=== PATIENT | male | born 1935 | race Two or more races ===

== ENCOUNTER 2018-06-03 20:10 | Inpatient (IN) | payer MEDICARE, MEDICAID ==
[~2018-06-03] VITALS: Ht 177.8 cm; Wt 59.9 kg
--- NOTE | 2018-06-03 20:24 | NUR ---
PT BIB RA. COMP OF HAVING "HYPOGLYCEMIC EPISODE X2, BS 3PM AT 30. FED AND GIVEN 10% DEXTROSE SOLUTION. 7PM BS CHECK AT 40. GIVEN 10% DEXTROSE ON ROUTE". NO SOB NOTED. PT IN NO ACUTE DISTRESS. AO. FRENCH SPEAKING. AWAITING MD TORRES.
[2018-06-03 21:03] LABS: APPEARANCE,URINE Clear (CLEAR); BILIRUBIN,URINE Negative (NEGATIVE); BLOOD, URINE Negative Ery/uL (NEGATIVE); COLOR,URINE Yellow (YELLOW); KETONES,URINE Negative (NEGATIVE); LEUKOCYTE ESTERASE ,URINE Negative (NEGATIVE); NITRITE, URINE Negative (NEGATIVE); PH,URINE 6.5 (5.0-8.0); PROTEIN,URINE >=300 mg/dl (NEGATIVE); UGLUCOSE Negative (NEGATIVE); UROBILINOGEN,URINE 0.2 EU/dL (0.2)
--- NOTE | 2018-06-03 21:10 | NUR ---
LABS DRAWN AND SENT FOR ANALYSIS
[2018-06-03 21:15] LABS: BASOPHILS % (AUTO) 0.4 % (0.0-2.0); EOSINOPHILS % (AUTO) 3.7 % (0.0-6.0); HEMATOCRIT 35 % (39-51); HEMOGLOBIN 11.9 g/dL (13.5-17.5); LYMPHOCYTES # (AUTO) 0.5 /CMM (0.8-4.8); LYMPHOCYTES % (AUTO) 5.7 % (20.0-44.0); MEAN CORPUSCULAR HGB CONC 34 g/dl (31.0-36.0); MEAN CORPUSCULAR VOLUME 96 fL (80-96); MONOCYTES # (AUTO) 0.4 /CMM (0.1-1.30); MONOCYTES % (AUTO) 4.9 % (2.0-12.0); NEUTROPHILS # (AUTO) 7.5 /CMM (1.8-8.9); NEUTROPHILS % (AUTO) 85.3 % (43.0-81.0); PLATELET COUNT (AUTO) 314 /CMM (150-450); RED BLOOD CELL COUNT(AUTO) 3.64 MIL/uL (4.5-6.0); WHITE BLOOD COUNT (AUTO) 8.8 K/uL (4.3-11.0)
[2018-06-03 21:31] LABS: ALANINE AMINOTRANSFERASE 23 U/L (12-78); ALBUMIN 2.7 g/dL (3.4-5.0); ALKALINE PHOSPHATASE 151 U/L (46-116); ASPARTATE AMINOTRANSFERASE 22 U/L (15-37); BILIRUBIN,DIRECT 0.1 mg/dL (0.0-0.2); BILIRUBIN,TOTAL 0.2 mg/dL (0.2-1.0); CALCIUM, SERUM 8.3 mg/dL (8.5-10.1); CARBON DIOXIDE 26 mmol/L (21-32); CHLORIDE 98 mmol/L (98-107); CREATININE 1.4 mg/dL (0.6-1.3); LIPASE 488 U/L (73-393); POTASSIUM 4.8 mmol/L (3.5-5.1); SODIUM SERUM 128 mmol/L (136-145); TOTAL PROTEIN, SERUM 6.4 g/dL (6.4-8.2)
[2018-06-03 21:33] LABS: GLUCOSE 36 mg/dL (74-106)
[2018-06-03 21:39] LABS: UREA NITROGEN, BLOOD 31 mg/dL (7-18)
[2018-06-03] MEDS ORDERED: DEXTROSE 50%-WATER 50 ML DISP.SYRIN ONE (21:43)
--- NOTE | 2018-06-03 21:47 | NUR ---
Paged Dr Walker and requested a tele bed from the nursing tellers supervisor
--- NOTE | 2018-06-03 21:55 | NUR ---
PT IS ASSIGNED TO TELE #: [id number], DX: HYPOGLYCEMIA, AND ACCEPTING MD: DR HERNDON
[2018-06-03] MEDS ORDERED: DEXTROSE 50%-WATER 50 ML DISP.SYRIN IVP ONE (22:00)
--- NOTE | 2018-06-03 22:17 | NUR ---
REPORT GIVEN TO ALE DUMONT.
--- NOTE | 2018-06-03 22:50 | NUR ---
CULINARY ARTIST ADMISSION NOTES RECEIVED PT FROM ER VIA [place], PT LAYING DOWN, AWAKE, ALERT ORIENTED X3, [place] SPEAKING, BREATHING EVEN AND UNLABORED ON ROOM AIR, NO SOB NOTED. IV ACCESS ON THE L AC #22 PATENT AND FLUSHING. NO COMPLAINT OF PAIN OR DISCOMFORT AT THIS TIME. BED IN LOWEST LOCKED POSITION, CALL LIGHT WITHIN REACH AT ALL TIMES, WILL CONTINUE TO MONITOR.
[2018-06-03] MEDS ORDERED: GABA-532 PO (23:39)
[2018-06-03] MEDS ORDERED: FERR325T28 PO (23:39)
[2018-06-03] MEDS ORDERED: SODI1TAB3 PO (23:39)
[2018-06-03] MEDS ORDERED: FAMO20TA80 PO (23:39)
[2018-06-03] MEDS ORDERED: TRAM50TA PO (23:39)
[2018-06-03] MEDS ORDERED: TIOT18CA3 INH (23:39)
[2018-06-03] MEDS ORDERED: OMEP40CA37 PO (23:39)
[2018-06-03] MEDS ORDERED: FLUT1DIS3 INH (23:39)
[2018-06-03] MEDS ORDERED: SERT50TA PO (23:39)
[2018-06-03] MEDS ORDERED: ONDA4TAB5 PO (23:39)
[2018-06-04] MEDS ORDERED: ONDANSETRON HCL/PF 4 MG/2 ML VIAL IVP PRN (01:00)
[2018-06-04] MEDS ORDERED: CLONIDINE HCL 0.1 MG TABLET PO PRN (01:00)
[2018-06-04 01:10] VITALS: BP 115/64
[2018-06-04 04:26] VITALS: BP 105/60
[2018-06-04] MEDS: TRAMADOL HCL 50 MG TABLET PO PRN ×2 (06:25→16:26)
--- NOTE | 2018-06-04 06:26 | NUR ---
TIRE BUILDER CLOSING NOTES PT REMAINS IN BED LAYING DOWN, AWAKE, ALERT ORIENTED X3, [place] SPEAKING, BREATHING EVEN AND UNLABORED ON ROOM AIR, NO SOB NOTED. IV ACCESS ON THE L AC #22 PATENT AND FLUSHING. MICROARRAY ANALYST IN PLACE, SR. NO COMPLAINT OF PAIN OR DISCOMFORT AT THIS TIME. BED IN LOWEST LOCKED POSITION, CALL LIGHT WITHIN REACH AT ALL TIMES, WILL ENDORSE TO DAY NURSE FOR DAIN
[2018-06-04 06:34] LABS: BASOPHILS % (AUTO) 0.4 % (0.0-2.0); EOSINOPHILS % (AUTO) 8.2 % (0.0-6.0); HEMATOCRIT 30 % (39-51); HEMOGLOBIN 10.1 g/dL (13.5-17.5); LYMPHOCYTES # (AUTO) 0.9 /CMM (0.8-4.8); LYMPHOCYTES % (AUTO) 14.2 % (20.0-44.0); MEAN CORPUSCULAR HGB CONC 34 g/dl (31.0-36.0); MEAN CORPUSCULAR VOLUME 95 fL (80-96); MONOCYTES # (AUTO) 0.5 /CMM (0.1-1.30); MONOCYTES % (AUTO) 7.6 % (2.0-12.0); NEUTROPHILS # (AUTO) 4.6 /CMM (1.8-8.9); NEUTROPHILS % (AUTO) 69.6 % (43.0-81.0); PLATELET COUNT (AUTO) 240 /CMM (150-450); RED BLOOD CELL COUNT(AUTO) 3.13 MIL/uL (4.5-6.0); WHITE BLOOD COUNT (AUTO) 6.6 K/uL (4.3-11.0)
[2018-06-04 07:30] LABS: ALANINE AMINOTRANSFERASE 21 U/L (12-78); ALBUMIN 2.4 g/dL (3.4-5.0); ALKALINE PHOSPHATASE 130 U/L (46-116); ASPARTATE AMINOTRANSFERASE 20 U/L (15-37); B-TYPE NATRIURETIC PEPTIDE 1605 PG/ML (0-125); BILIRUBIN,TOTAL 0.2 mg/dL (0.2-1.0); CARBON DIOXIDE 24 mmol/L (21-32); CHLORIDE 99 mmol/L (98-107); CREATININE 1.6 mg/dL (0.6-1.3); GLUCOSE 106 mg/dL (74-106); LIPASE 374 U/L (73-393); MAGNESIUM 2.2 mg/dL (1.8-2.4); PHOSPHORUS 2.6 mg/dL (2.5-4.9); POTASSIUM 4.8 mmol/L (3.5-5.1); SODIUM SERUM 129 mmol/L (136-145); TOTAL PROTEIN, SERUM 5.5 g/dL (6.4-8.2); UREA NITROGEN, BLOOD 32 mg/dL (7-18)
[2018-06-04 07:53] LABS: CHOLESTEROL 122 mg/dL (<200); HDL CHOLESTEROL 38 mg/dL (40-60); LDL 78 mg/dL (0-99); THYROID STIMULATING HORMONE 1.158 uIU/mL (0.358-3.74); TRIGLYCERIDES 63 mg/dL (30-150)
[2018-06-04 08:00] VITALS: BP 101/54
[2018-06-04 08:18] LABS: SERUM AMMONIA 40 umol/L (11-32)
[2018-06-04] MEDS ORDERED: FLUTICASONE/SALMETEROL DISKUS IH SCH (09:00)
[2018-06-04] MEDS: PANTOPRAZOLE 40 MG TABLET.DR PO SCH (09:09)
[2018-06-04] MEDS: GABAPENTIN 100 MG CAPSULE PO SCH ×3 (09:09→16:26)
[2018-06-04] MEDS: SODIUM CHLORIDE 1000 MG TABLET.SOL PO SCH ×2 (09:10→16:26)
[2018-06-04] MEDS: DOCUSATE SODIUM 100 MG CAPSULE PO SCH ×2 (09:10→16:27)
[2018-06-04] MEDS: FLUTICASONE/VILANTEROL 1 EACH BLST.W.DEV IH SCH (09:15)
--- NOTE | 2018-06-04 09:39 | NUR ---
RN OPENING NOTES RECEIVED PATIENT IN BED RESTING. A/OX2-3, SERBIAN SPEAKING, ABLE TO MAKE NEEDS KNOWN. NOT IN ANY FORM OF DISTRESS, NO SOB, DENIED PAIN OR DISCOMFORT AT THIS TIME. IV ACCESS INTACT AND PATENT. KEPT PATIENT SAFE AND COMFORTABLE. BED IN LOW/LOCKED POSITION, SEMIFOWLERS, SIDERAILS UPX2, CALL LIGHT IN REACH. WILL CONTINUE TO MONIOTR ACCORDINGLY.
--- NOTE | 2018-06-04 10:18 | NUR ---
CREATININE IS 1.6. RN WILL VERIFY WITH MD REGARDING CT ABDOMEN PELVIS WITH CONTRAST. CONSENT ALSO NEEDED PRIOR TO CT SCAN.
[2018-06-04] MEDS: ENSURE ENLIVE 237 ML LIQUID (VANILLA) PO SCH ×2 (15:28→16:24)
[2018-06-04 16:00] VITALS: BP 148/75
--- NOTE | 2018-06-04 19:05 | NUR ---
RN MS OPENING NOTES RECEIVED PATIENT IN BED AWAKE ALERT AND ORIENTED 3, ABLE TO MAKE NEEDS KNOWN,RESPIRATIONS EVEN AND UNLABORED WITH EQUAL RISE AND FALL OF CHEST,DENIES ANY PAIN AT THIS TIME, IV SITE TO LEFT AC #20 G SL INTACT AND PATENT, NO REDNESS, NO INFILTRATION PRESENT, SAFETY PRECAUTIONS IN PLACE, LOW BED AND LOCKED, BED ALARM IN PLACE, ORIENTED TO STAFF AND CALL LIGHT AND KEPT WITHIN REACH,FLUIDS AND URINAL OFFERED, MADE PATIENT AWARE NEED URINE SPECIMEN VERBALIZE HE UNDERSTANDS WILL CONTINUE TO FOLLOW UP ALL NEEDS ATTENDED REMAINS COMFORTABLE AT THIS TIME.
--- NOTE | 2018-06-04 19:20 | NUR ---
RN CLOSING NOTES PATIENT IN STABLE CONDITION. ALL NEEDS ATTENDED AND PROVIDED. ALL DUE MEDICATIONS GIVEN ORDERED. KEPT PATENT SAFE AND COMFORTABLE. BED IN LOW/LOCKED POSITION, SIDERAILS UPX2, CALL LIGHT IN REACH. WILL CONTINUE TO MONITOR ACCORDINGLY.
[2018-06-04 20:00] VITALS: BP 149/79
[2018-06-04] MEDS: ACETAMINOPHEN 325 MG TABLET PO PRN (20:52)
--- NOTE | 2018-06-04 20:52 | NUR ---
RN MS NOTES PATIENT COMPLAINT OF PAIN TO LOWER EXTREMITIES STATES "12/05 ITS ARTHRITIS PAIN" AND WANTS PAIN MEDICATION TYLENOL OFFERED AGREED TO TAKE PRN TYLENOL GIVEN ORDERED, WILL CONTINUE TO MONITOR FOR EFFECTIVENESS.
[2018-06-04] MEDS: SERTRALINE HCL 50 MG TABLET PO SCH (21:02)
[2018-06-04 23:03] LABS: URINE SODIUM, RANDOM 97 mmol/l (40-220)
[2018-06-04 23:18] LABS: OSMOLALITY,URINE 372 mOS/kg (340-1090)
--- NOTE | 2018-06-05 05:49 | NUR ---
RN MS NOTES NOTED PATIENT PICKING AT LEFT FA IV SITE NOTED PATIENT PEELED OFF TAPE AND NOTED SKIN TEAR, WOUND PICTURE TAKEN, WOUND CARE CONSULT PLACED,IV SITE INTACT AND PATENT, DRESSING PLACED REMAINS CLEAN AND DRY,WOUND CARE CONSULT ORDERED.
--- NOTE | 2018-06-05 06:37 | NUR ---
RN CLOSING NOTES PATIENT IN BED AWAKE ALERT AND ORIENTED X3, ABLE TO MAKE NEEDS KNOWN,RESPIRATIONS EVEN AND UNLABORED WITH EQUAL RISE AND FALL OF CHEST,DENIES ANY PAIN AT THIS TIME, IV SITE TO LEFT AC #20 G SL INTACT AND PATENT REINFORCED IV SITE DOES WORK, NO REDNESS, NO INFILTRATION PRESENT, PLACED DRESSING TO SELF INFLICTED SKIN TEAR, SAFETY PRECAUTIONS IN PLACE, LOW BED AND LOCKED, BED ALARM IN PLACE, CALL LIGHT AND KEPT WITHIN REACH,FLUIDS AND URINAL OFFERED, WILL CONTINUE TO FOLLOW UP ALL NEEDS ATTENDED REMAINS COMFORTABLE AT THIS TIME. WILL CONTINUE TO MONITOR AND ENDORSE TO NEXT SHIFT.
[2018-06-05 06:56] LABS: CALCIUM, SERUM 8.4 mg/dL (8.5-10.1); CARBON DIOXIDE 21 mmol/L (21-32); CHLORIDE 98 mmol/L (98-107); CREATININE 1.7 mg/dL (0.6-1.3); GLUCOSE 82 mg/dL (74-106); MAGNESIUM 2.2 mg/dL (1.8-2.4); PHOSPHORUS 3.5 mg/dL (2.5-4.9); POTASSIUM 4.8 mmol/L (3.5-5.1); SODIUM SERUM 128 mmol/L (136-145); UREA NITROGEN, BLOOD 34 mg/dL (7-18)
[2018-06-05 08:00] VITALS: BP 153/84
[2018-06-05 08:18] LABS: THYROID STIMULATING HORMONE 1.298 uIU/mL (0.358-3.74); URIC ACID 4.9 mg/dL (2.6-7.2)
[2018-06-05] MEDS: PANTOPRAZOLE 40 MG TABLET.DR PO SCH (09:06)
[2018-06-05] MEDS: SODIUM CHLORIDE 1000 MG TABLET.SOL PO SCH ×2 (09:07→17:23)
[2018-06-05] MEDS: DOCUSATE SODIUM 100 MG CAPSULE PO SCH ×2 (09:07→17:23)
[2018-06-05] MEDS: GABAPENTIN 100 MG CAPSULE PO SCH ×3 (09:07→17:23)
[2018-06-05] MEDS: TRAMADOL HCL 50 MG TABLET PO PRN ×2 (09:10→17:24)
[2018-06-05] MEDS: FLUTICASONE/VILANTEROL 1 EACH BLST.W.DEV IH SCH (09:11)
[2018-06-05] MEDS: ENSURE ENLIVE 237 ML LIQUID (VANILLA) PO SCH ×3 (09:11→17:00)
--- NOTE | 2018-06-05 10:22 | NUR ---
WOUND CARE CONSULT: PT PRESENTS WITH INCONTINENCE AND BLANCHABLE REDNESS TO BONY SACRAL AREA, PRESENT ON ADMISSION. PT NOTED TO HAVE SKIN TEAR TO LEFT ARM. RECOMMENDATIONS MADE FOR WOUND CARE AND SKIN PROTECTION. DISCUSSED WITH NURSING STAFF. CURRENT JUAN SCORE IS 13. WILL SEE PRN. HOYT IN AGREEMENT WITH PLAN OF CARE. Addendum: 06/05/18 at 1024 by SAMANTHA PARIS WNDNU Amended: Links added.
[2018-06-05] MEDS ORDERED: Z GUARD REMEDY 2 OZ OINT TP PRN (10:30)
[2018-06-05] MEDS: Z GUARD REMEDY 2 OZ OINT TP SCH (12:34)
[2018-06-05] MEDS ORDERED: ENSURE ENLIVE 237 ML LIQUID (VANILLA) PO SCH (14:00)
[2018-06-05 16:00] VITALS: BP 132/75
[2018-06-05] MEDS ORDERED: PEG 3350/NA SULF,BICARB,CL/KCL 4,000 ML BOTTLE PO ONE (16:30)
--- NOTE | 2018-06-05 18:00 | NUR ---
urine collected. called lab for package pick up
--- NOTE | 2018-06-05 19:05 | NUR ---
RN MS NOTES CONDOM CATHETER ASSESSED WITH ENDORSING RN NOTED INTACT WITH PROPER PLACEMENT , SKIN IS INTACT PINK IN COLOR CIRCULATION PRESENT AND CORRECT SIZE IN PLACE, NOT TIGHT FITTING.DRAINING WELL
--- NOTE | 2018-06-05 19:05 | NUR ---
JULIA MS OPENING NOTES RECEIVED PATIENT IN BED AWAKE ALERT AND ORIENTEDX3, ABLE TO MAKE NEEDS KNOWN,RESPIRATIONS EVEN AND UNLABORED WITH EQUAL RISE AND FALL OF CHEST,DENIES ANY PAIN AT THIS TIME, IV SITE TO LEFT AC #20 G SL INTACT AND PATENT, NO REDNESS, NO INFILTRATION PRESENT, SAFETY PRECAUTIONS IN PLACE, LOW BED AND LOCKED, BED ALARM IN PLACE, ORIENTED TO STAFF AND CALL LIGHT AND KEPT WITHIN REACH,FLUIDS AND URINAL OFFERED, GOLYTLEY DRINK AT BEDSIDE ORDERED VERBALIZE HE UNDERSTANDS WILL CONTINUE TO DRINK, WILL CONT TO F/UP FOLLOW UP, ALL NEEDS ATTENDED REMAINS COMFORTABLE AT THIS TIME.WILL CONTINUE TO MONITOR FOR BOWEL MOVEMENTS. Addendum: 06/05/18 at 2351 by CHET LARRY RN LEFT FA SKIN TEAR DRESSING IS C/D/I Addendum: 06/06/18 at 0537 by CHET LARRY RN CLARIFICATION PATIENT IS ON CONDOM CATHETER.
--- NOTE | 2018-06-05 19:29 | NUR ---
RN CLOSING NOTES PATIENT IN STABLE CONDITION. ALL NEEDS ATTENDED AND PROVIDED. ALL DUE MEDICATIONS ADMINISTERED ORDERED. KEPT PATIENT SAFE AND COMFORTABLE. BED IN LOW/LOCKED POSITION, SIDERAILS UPX2, CALL LIGHT IN REACH. ENDORSED TO NIGHT RN FOR DAIN.
[2018-06-05 20:00] VITALS: BP 147/78
[2018-06-05 20:20] LABS: APPEARANCE,URINE SL CLOUDY (CLEAR); BILIRUBIN,URINE NEGATIVE (NEGATIVE); BLOOD, URINE TRACE-INTA Ery/uL (NEGATIVE); COLOR,URINE YELLOW (YELLOW); KETONES,URINE NEGATIVE (NEGATIVE); LEUKOCYTE ESTERASE ,URINE 2+ (NEGATIVE); NITRITE, URINE NEGATIVE (NEGATIVE); PH,URINE 7.5 (5.0-8.0); PROTEIN,URINE 2+ mg/dl (NEGATIVE); UGLUCOSE NEGATIVE (NEGATIVE); UROBILINOGEN,URINE 0.2 EU/dL (0.2)
[2018-06-05 20:31] LABS: BACTERIA,URINE Few /HPF (None Seen); RBC,URINE 0-2 /HPF (0-2); SQUAMOUS EPITHELIAL CELL,UR Few /HPF (None Seen)
[2018-06-05 20:35] LABS: URINE TOTAL PROTEIN 158.4 mg/dL (0-11.9)
[2018-06-05 20:58] LABS: EOSINOPHIL,URINE None Seen
[2018-06-05] MEDS: SERTRALINE HCL 50 MG TABLET PO SCH (21:16)
[2018-06-05] MEDS: ACETAMINOPHEN 325 MG TABLET PO PRN (21:20)
--- NOTE | 2018-06-05 21:20 | NUR ---
RN MS NOTES MADE ARIC AWARE OF US GALLBLADDER RESULTS, PER CHEMICAL LABORATORY TECHNICIAN ARIC NO NEW ORDERS AT THIS TIME, RESUME DIET. PATIENT COMPLAINT OF PAIN TO LOWER EXTREMITY ARTHRITIC PAIN , TYLENOL OFFERED AGREED TO TAKE 650 MG GIVEN ORDERED, WILL CONTINUE TO MONITOR FOR EFFECTIVENESS, LIGHTS DIMMED, AND REPOSITIONED.
--- NOTE | 2018-06-06 05:20 | NUR ---
RN MS NOTES UPON REASSESSMENT NOTED PENILE TIP DEVELOPED FLUID BLISTER 0.5CMX0.5CM , REMOVED CONDOM CATHETER AT THIS TIME, WOUND CARE CONSULT PLACED PATIENT DENIES PAIN TO SITE, COLOR IS WNL. WILL CONTINUE TO MONITOR.
--- NOTE | 2018-06-06 06:25 | NUR ---
RN MS CLOSING NOTES PATIENT IN BED AWAKE ALERT AND ORIENTEDX3, ABLE TO MAKE NEEDS KNOWN,RESPIRATIONS EVEN AND UNLABORED WITH EQUAL RISE AND FALL OF CHEST,DENIES ANY PAIN AT THIS TIME, IV SITE TO LEFT AC #20 G SL INTACT AND PATENT, NO REDNESS, NO INFILTRATION PRESENT, SAFETY PRECAUTIONS IN PLACE, LOW BED AND LOCKED, BED ALARM IN PLACE, GOLYTELY WAS ENCOURAGED, HOWEVER PATIENT STATES "HE FELT FULL AND WILL TRY TO DRINK THROUGHOUT THE NIGHT. HAS NOT HAS BOWEL MOVEMENT YET NOTED SMEAR ONLY. CALL LIGHT AND KEPT WITHIN REACH,FLUIDS AND URINAL OFFERED, [place] DRINK AT BEDSIDE ORDERED VERBALIZE HE UNDERSTANDS WILL CONTINUE TO DRINK, WILL CONT TO F/UP FOLLOW UP, ALL NEEDS ATTENDED REMAINS COMFORTABLE AT THIS TIME.WILL CONTINUE TO MONITOR FOR BOWEL MOVEMENTS AND ENDORSE TO NEXT SHIFT, SACRAL INTACT, MEPILEX INTACT AND REPOSITIONED. ALL NEEDS ATTENDED.
--- NOTE | 2018-06-06 07:25 | NUR ---
MS RN INITIAL NOTES Report received at bedside. Patient received in bed, awake, comfortable. Verbally responsive in Polish only. Pureed diet resumed as ordered. Denies any pain at the moment. No SOB/labored breathing noted. Not in any apparent distress. Safety measures in place. Will continue to monitor and assess patient
[2018-06-06 07:31] LABS: BASOPHILS # (AUTO) 0.1 /CMM (0.0-0.2); BASOPHILS % (AUTO) 1.2 % (0.0-2.0); EOSINOPHILS % (AUTO) 16.3 % (0.0-6.0); HEMATOCRIT 32 % (39-51); LYMPHOCYTES # (AUTO) 1.7 /CMM (0.8-4.8); LYMPHOCYTES % (AUTO) 29.8 % (20.0-44.0); MEAN CORPUSCULAR HGB CONC 34 g/dl (31.0-36.0); MEAN CORPUSCULAR VOLUME 94 fL (80-96); MONOCYTES # (AUTO) 0.4 /CMM (0.1-1.30); MONOCYTES % (AUTO) 7.9 % (2.0-12.0); NEUTROPHILS # (AUTO) 2.5 /CMM (1.8-8.9); NEUTROPHILS % (AUTO) 44.8 % (43.0-81.0); PLATELET COUNT (AUTO) 262 /CMM (150-450); WHITE BLOOD COUNT (AUTO) 5.7 K/uL (4.3-11.0)
[2018-06-06 08:00] VITALS: BP 144/68
[2018-06-06] MEDS: SODIUM CHLORIDE 1000 MG TABLET.SOL PO SCH ×2 (08:18→16:24)
[2018-06-06] MEDS: PANTOPRAZOLE 40 MG TABLET.DR PO SCH (08:18)
[2018-06-06] MEDS: DOCUSATE SODIUM 100 MG CAPSULE PO SCH ×2 (08:18→16:24)
[2018-06-06 08:20] LABS: ALANINE AMINOTRANSFERASE 18 U/L (12-78); ALBUMIN 2.5 g/dL (3.4-5.0); ALKALINE PHOSPHATASE 105 U/L (46-116); ASPARTATE AMINOTRANSFERASE 20 U/L (15-37); BILIRUBIN,TOTAL 0.4 mg/dL (0.2-1.0); CALCIUM, SERUM 8.5 mg/dL (8.5-10.1); CARBON DIOXIDE 23 mmol/L (21-32); CHLORIDE 96 mmol/L (98-107); CREATININE 1.5 mg/dL (0.6-1.3); GLUCOSE 76 mg/dL (74-106); MAGNESIUM 2.2 mg/dL (1.8-2.4); POTASSIUM 5.1 mmol/L (3.5-5.1); SODIUM SERUM 127 mmol/L (136-145); TOTAL PROTEIN, SERUM 5.9 g/dL (6.4-8.2); UREA NITROGEN, BLOOD 33 mg/dL (7-18)
[2018-06-06] MEDS: GABAPENTIN 100 MG CAPSULE PO SCH ×3 (08:21→16:24)
[2018-06-06] MEDS: FLUTICASONE/VILANTEROL 1 EACH BLST.W.DEV IH SCH (08:21)
[2018-06-06] MEDS: ENSURE ENLIVE 237 ML LIQUID (VANILLA) PO SCH ×2 (08:23→12:05)
[2018-06-06 08:38] LABS: CREATINE KINASE, TOTAL 97 U/L (39-308)
[2018-06-06] MEDS ORDERED: IV NS 0.9% 1,000 ML IV PRN (09:00)
--- NOTE | 2018-06-06 09:30 | NUR ---
MS RN CLOSING NOTES Report given to Aly Cohen (coiled tubing supervisor). Patient in stable condition
[2018-06-06] MEDS: Z GUARD REMEDY 2 OZ OINT TP SCH (09:39)
--- NOTE | 2018-06-06 09:49 | NUR ---
appeared alert, and oriented. seen by dr wilson, all lab work reviewed, ivf initiated.
--- NOTE | 2018-06-06 10:22 | NUR ---
WOUND CARE CONSULT: PT SEEN FOR AREA OF EDEMA WITH INTACT BLISTER TO PENIS. NO TENDERNESS OR DRAINAGE NOTED. PT IS INCONTINENT. DISCUSSED SKIN PROTECTION WITH NURSING STAFF. WILL SEE PRN.
[2018-06-06 13:44] VITALS: BP 144/68
[2018-06-06 16:00] VITALS: BP 134/77
--- NOTE | 2018-06-06 17:43 | NUR ---
had two huge bm today. appetite good for all meals. calm, and cooperative with nursing care.
--- NOTE | 2018-06-06 19:00 | NUR ---
RN OPENING NOTES RECEIVED PATIENT AWAKE AND RESTING IN BED. NO COMPLAINTS OF PAIN, SOB OR DISTRESS AT THIS TIME. PT HAS A LEFT AC #20IV RUNNING NS @75ML/HR. PER DAY SHIFT NURSE PT HAD 2 LARGE BM. SAFETY PRECAUTIONS IN PLACE, BED IN LOWEST LOCKED POSITION, X2 SIDE RAILS UP AND CALL LIGHT WITHIN REACH. WILL CONTINUE TO MONITOR.
[2018-06-06 20:00] VITALS: BP 137/72
[2018-06-06] MEDS: SERTRALINE HCL 50 MG TABLET PO SCH (21:03)
--- NOTE | 2018-06-07 06:45 | NUR ---
RN CLOSING NOTES PATIENT AWAKE AND RESTING IN BED. NO COMPLAINTS OF PAIN, SOB OR DISTRESS OVERNIGHT. PT HAS A LEFT AC #20IV RUNNING NS @75ML/HR. PT HAD ONE BM OVERNIGHT. SAFETY PRECAUTIONS IN PLACE, BED IN LOWEST LOCKED POSITION, X2 SIDE RAILS UP AND CALL LIGHT WITHIN REACH. WILL ENDORSE TO DAY SHIFT NURSE FOR CONTINUITY OF CARE.
[2018-06-07 07:20] LABS: BASOPHILS # (AUTO) 0.1 /CMM (0.0-0.2); BASOPHILS % (AUTO) 1.1 % (0.0-2.0); EOSINOPHILS % (AUTO) 13.2 % (0.0-6.0); HEMATOCRIT 32 % (39-51); LYMPHOCYTES # (AUTO) 1.7 /CMM (0.8-4.8); MEAN CORPUSCULAR HGB CONC 34 g/dl (31.0-36.0); MEAN CORPUSCULAR VOLUME 95 fL (80-96); MONOCYTES # (AUTO) 0.5 /CMM (0.1-1.30); MONOCYTES % (AUTO) 7.8 % (2.0-12.0); NEUTROPHILS # (AUTO) 3.3 /CMM (1.8-8.9); NEUTROPHILS % (AUTO) 50.9 % (43.0-81.0); PLATELET COUNT (AUTO) 237 /CMM (150-450); RED BLOOD CELL COUNT(AUTO) 3.43 MIL/uL (4.5-6.0); WHITE BLOOD COUNT (AUTO) 6.4 K/uL (4.3-11.0)
[2018-06-07 07:47] LABS: CALCIUM, SERUM 8.3 mg/dL (8.5-10.1); CARBON DIOXIDE 23 mmol/L (21-32); CHLORIDE 99 mmol/L (98-107); CREATININE 1.6 mg/dL (0.6-1.3); GLUCOSE 84 mg/dL (74-106); MAGNESIUM 2.2 mg/dL (1.8-2.4); PHOSPHORUS 3.1 mg/dL (2.5-4.9); POTASSIUM 4.6 mmol/L (3.5-5.1); SODIUM SERUM 130 mmol/L (136-145); UREA NITROGEN, BLOOD 32 mg/dL (7-18)
[2018-06-07] MEDS: ENSURE ENLIVE 237 ML LIQUID (VANILLA) PO SCH ×4 (08:00→16:01)
--- NOTE | 2018-06-07 08:00 | NUR ---
MS RN RECEIVED ON BED, AWAKE,ALERT,ORIENTED X3, NOT IN ANY FORM OF DISTRESS, RESPIRATIONS EVEN AND UNLABORED,NO SOB NOTED, LUNGS ARE CLEAR,ABDOMEN SOFT,POSITIVE BOWEL SOUNDS,DENIES PAIN AT THIS TIME,ALL NEEDS ATTENDED.
[2018-06-07 08:05] VITALS: BP 146/80
--- NOTE | 2018-06-07 10:00 | NUR ---
ms rn due meds given.tolerated well.
[2018-06-07] MEDS: SODIUM CHLORIDE 1000 MG TABLET.SOL PO SCH ×2 (10:27→15:57)
[2018-06-07] MEDS: PANTOPRAZOLE 40 MG TABLET.DR PO SCH (10:27)
[2018-06-07] MEDS: GABAPENTIN 100 MG CAPSULE PO SCH ×3 (10:27→15:57)
[2018-06-07] MEDS: DOCUSATE SODIUM 100 MG CAPSULE PO SCH ×2 (10:27→15:57)
[2018-06-07] MEDS: FLUTICASONE/VILANTEROL 1 EACH BLST.W.DEV IH SCH (10:37)
[2018-06-07] MEDS: Z GUARD REMEDY 2 OZ OINT TP SCH (10:38)
[2018-06-07 11:12] LABS: *SPE A/G RATIO 0.9 (0.7-1.7); *SPE ALBUMIN 2.7 g/dL (2.9-4.4); *SPE ALPHA-1-GLOBULIN 0.3 g/dL (0.0-0.4); *SPE ALPHA-2-GLOBULIN 0.7 g/dL (0.4-1.0); *SPE GLOBULIN, TOTAL 2.9 g/dL (2.2-3.9); *SPE M-SPIKE Not Observed g/dL (Not Observed); *SPEGAMMA GLOBULIN 0.9 g/dL (0.4-1.8)
[2018-06-07 12:13] LABS: PTH, INTACT 54 pg/mL (15-65)
[2018-06-07 16:01] VITALS: BP 142/71
--- NOTE | 2018-06-07 16:30 | NUR ---
ms rn 5pm meds given,ready for discharge.
--- NOTE | 2018-06-07 17:00 | NUR ---
ms rn patient went to [facility], report given to flor moreno,all needs attended.no distress noted.
== END 2018-06-07 17:00 | DRG 682 ==
LOC: ER 20:12 → TELE 21:57 → MED 06-04 10:46
PROVIDERS: ADMIT Internal Medicine; ATTEND Nurse Practitioner Acute Care
DX: N17.0 Acute kidney failure with tubular necrosis (principal); E43 Unspecified severe protein-calorie malnutrition; G93.41 Metabolic encephalopathy; K85.90 Acute pancreatitis without necrosis or infection, unspecified; D68.59 Other primary thrombophilia; E22.2 Syndrome of inappropriate secretion of antidiuretic hormone; Z68.1 Body mass index [BMI] 19.9 or less, adult; K80.21 Calculus of gallbladder without cholecystitis with obstruction; E16.2 Hypoglycemia, unspecified; I11.0 Hypertensive heart disease with heart failure; G62.9 Polyneuropathy, unspecified; D63.8 Anemia in other chronic diseases classified elsewhere; E86.0 Dehydration; G30.9 Alzheimer's disease, unspecified; F02.80 Dementia in other diseases classified elsewhere, unspecified severity, without behavioral disturbance, psychotic disturbance, mood disturbance, and anxiety; J44.9 Chronic obstructive pulmonary disease, unspecified; K21.9 Gastro-esophageal reflux disease without esophagitis; M19.90 Unspecified osteoarthritis, unspecified site; R62.7 Adult failure to thrive; Z87.891 Personal history of nicotine dependence; Z87.440 Personal history of urinary (tract) infections; K59.00 Constipation, unspecified; I50.9 Heart failure, unspecified
CPT/HCPCS: 36415; 70450-TC; 71045-TC; 74018; 76705-TC; 80048-TC; 80053-TC; 80061-TC; 80076-TC; 81000-TC; 82140-TC; 82550-TC; 82570-TC; 82962-TC; 83605-TC; 83690-TC; 83735-TC; 83880; 83935-TC; 83970; 84100-TC; 84155; 84155-TC; 84165; 84300-TC; 84443-TC; 84484-TC; 84550-TC; 85025-TC; 87081-TC; 87086-TC; 87186-TC; 97110-TC; 97112-TC; 97530-TC; A4349; A6402; G0378; J7030

== ENCOUNTER 2019-09-22 15:24 | Inpatient (IN) | payer MEDICARE, OTHER ==
[~2019-09-22] VITALS: Ht 182.9 cm; Wt 54.4 kg
[2019-09-22] VITALS (8 sets, daily range): BP systolic 91–103; BP diastolic 55–65
[~2019-09-22 15:24] MED LIST: FAMO20TA80 PO; FERR325T28 PO; FLUT1DIS3 INH; GABA-532 PO; OMEP40CA13 PO; ONDA4TAB5 PO; SERT50TA PO; SODI1TAB66 PO; TIOT18CA3 INH; TRAM50TA PO
--- NOTE | 2019-09-22 15:30 | NUR ---
AMANUEL RA 62 From [facility] "SOB/More Altered than usual same room with +COVID pt. On O2L sats 92-93", TO ER BED 6, HOOKED TO BP MONITOR AND POX, CHANGED TO HOSP GOWN, PATIENT AO x 0, NOTED W LABORED BREATHING. DR ANTOINE AT BEDSIDE
[2019-09-22 15:45] LABS: BASOPHILS # (AUTO) 0.1 /CMM (0.0-0.2); BASOPHILS % (AUTO) 0.4 % (0.0-2.0); HEMATOCRIT 29 % (39-51); HEMOGLOBIN 8.8 g/dL (13.5-17.5); LYMPHOCYTES # (AUTO) 1.5 /CMM (0.8-4.8); LYMPHOCYTES % (AUTO) 8.9 % (20.0-44.0); MEAN CORPUSCULAR HGB CONC 31 g/dl (31.0-36.0); MEAN CORPUSCULAR VOLUME 98 fL (80-96); MONOCYTES # (AUTO) 0.3 /CMM (0.1-1.30); MONOCYTES % (AUTO) 1.6 % (2.0-12.0); NEUTROPHILS # (AUTO) 14.9 /CMM (1.8-8.9); NEUTROPHILS % (AUTO) 89.1 % (43.0-81.0); PLATELET COUNT (AUTO) 185 /CMM (150-450); RED BLOOD CELL COUNT(AUTO) 2.93 MIL/uL (4.5-6.0); WHITE BLOOD COUNT (AUTO) 16.7 K/uL (4.3-11.0)
[2019-09-22 15:58] LABS: APPEARANCE,URINE Cloudy (CLEAR); BILIRUBIN,URINE Negative (NEGATIVE); BLOOD, URINE Large Ery/uL (NEGATIVE); COLOR,URINE Yellow (YELLOW); KETONES,URINE Negative (NEGATIVE); LEUKOCYTE ESTERASE ,URINE Negative (NEGATIVE); NITRITE, URINE Negative (NEGATIVE); PH,URINE 5.5 (5.0-8.0); PROTEIN,URINE >=300 mg/dl (NEGATIVE); UGLUCOSE Negative (NEGATIVE); UROBILINOGEN,URINE 0.2 EU/dL (0.2)
[2019-09-22] MEDS ORDERED: IV NS 0.9% 500 ML BAG IV ONE (16:00)
[2019-09-22 16:09] LABS: ALANINE AMINOTRANSFERASE 117 U/L (12-78); ALKALINE PHOSPHATASE 94 U/L (46-116); ASPARTATE AMINOTRANSFERASE 130 U/L (15-37); B-TYPE NATRIURETIC PEPTIDE 13974 PG/ML (0-125); BILIRUBIN,TOTAL 0.2 mg/dL (0.2-1.0); CALCIUM, SERUM 8.7 mg/dL (8.5-10.1); GLUCOSE 100 mg/dL (74-106); TOTAL PROTEIN, SERUM 7.3 g/dL (6.4-8.2)
[2019-09-22 16:10] LABS: POTASSIUM 5.5 mmol/L (3.5-5.1)
[2019-09-22 16:12] LABS: CARBON DIOXIDE 8 mmol/L (21-32); CHLORIDE 127 mmol/L (98-107); SODIUM SERUM 158 mmol/L (136-145)
[2019-09-22 16:13] LABS: UREA NITROGEN, BLOOD 148 mg/dL (7-18)
[2019-09-22 16:15] LABS: D-DIMER 2.45 mg/L(FEU (0.17-0.50)
--- NOTE | 2019-09-22 16:15 | NUR ---
EPIC PAGE. [facility] IS ADMITTING. AWAITING CALL BACK
[2019-09-22] MEDS ORDERED: HYDR28.32 TP (16:24)
[2019-09-22] MEDS ORDERED: ACET-868 PO (16:24)
[2019-09-22] MEDS ORDERED: SACU1TAB PO (16:24)
[2019-09-22] MEDS ORDERED: OMEG1CAP PO (16:24)
[2019-09-22] MEDS ORDERED: SENN-261 PO (16:24)
[2019-09-22] MEDS ORDERED: FOLI0.8T2 PO (16:24)
[2019-09-22] MEDS ORDERED: AMIN30LI2 PO (16:24)
[2019-09-22] MEDS ORDERED: BETA1TAB5 PO (16:24)
[2019-09-22] MEDS ORDERED: MELA3TAB41 PO (16:24)
[2019-09-22] MEDS ORDERED: LINA145C PO (16:24)
[2019-09-22] MEDS ORDERED: FLUT1BLS IH (16:24)
[2019-09-22] MEDS ORDERED: BISA10SU11 RC (16:24)
[2019-09-22] MEDS ORDERED: MAGN400O6 PO (16:24)
[2019-09-22] MEDS ORDERED: OMEP1PAC5 PO (16:24)
[2019-09-22] MEDS ORDERED: DICL100G16 TP (16:24)
[2019-09-22] MEDS ORDERED: POLY15DR40 EACHEYE (16:24)
[2019-09-22] MEDS ORDERED: APRE30TA2 PO (16:24)
[2019-09-22] MEDS ORDERED: CALC-7 PO (16:24)
[2019-09-22] MEDS ORDERED: NA P133E RC (16:24)
[2019-09-22] MEDS ORDERED: BLOO-668 IN (16:25)
[2019-09-22 16:37] LABS: RBC,URINE 21-50 /HPF (0-2); WBC,URINE 0-2 /HPF (0-3)
[2019-09-22 16:38] LABS: BACTERIA,URINE Few /HPF (None Seen); SQUAMOUS EPITHELIAL CELL,UR Few /HPF (None Seen); URINE AMORPHOUS URATE Moderate /HPF (None Seen)
[2019-09-22 16:39] LABS: MUCUS,URINE Few /LPF (None Seen)
[2019-09-22] MEDS ORDERED: ENOXAPARIN SODIUM 40 MG/0.4 ML DISP.SYRIN SQ ONE ×2 (17:00→17:43)
[2019-09-22 17:24] LABS: CREATINE KINASE, TOTAL 341 U/L (39-308)
[2019-09-22] MEDS ORDERED: TRAMADOL HCL 50 MG TABLET PO PRN (19:00)
[2019-09-22] MEDS ORDERED: NA PHOS,M-B/NA PHOS,DI-BA 1 EA ENEMA RC PRN (19:00)
[2019-09-22] MEDS ORDERED: ALBUTEROL SULFATE 8 GM HFA.AER.AD IH PRN (19:00)
[2019-09-22] MEDS ORDERED: MAGNESIUM HYDROXIDE 30 ML UDC PO PRN (19:00)
[2019-09-22] MEDS ORDERED: BISACODYL SUPP (10 MG) 10 MG/SUPP.RECT SUPP.RECT RC PRN (19:00)
[2019-09-22] MEDS ORDERED: ONDANSETRON HCL/PF 4 MG/2 ML VIAL IVP PRN (19:00)
[2019-09-22] MEDS ORDERED: NOREPINEPHRINE 8 MG in IV NS 0.9% 242 ML IV PRN (19:30)
[2019-09-22] MEDS ORDERED: IV D5W 1,000 ML IV PRN (19:30)
[2019-09-22] MEDS ORDERED: INSULIN REGULAR, HUMAN 100 UNIT/ML 3 ML VIAL SQ PRN (19:30)
[2019-09-22] MEDS ORDERED: DEXTROSE 50%-WATER 50 ML DISP.SYRIN IV PRN (19:30)
[2019-09-22] MEDS ORDERED: HYDROXYCHLOROQUINE 200 MG TABLET PO SCH (19:30)
--- NOTE | 2019-09-22 19:32 | NUR ---
BED ASSIGNMENT ICU 261
[2019-09-22 19:40] LABS: C-REACTIVE PROTEIN 27.9 mg/dL (0.0-0.9)
--- NOTE | 2019-09-22 19:55 | NUR ---
REPORT GIVEN TO DALJIT DUMONT OF ICU
[2019-09-22] MEDS ORDERED: VANCOMYCIN 1.75 GM in IV D5W 500 ML IV ONE (20:30)
--- NOTE | 2019-09-22 20:30 | NUR ---
WASTEWATER TREATMENT ENGINEER RCD PT FROM ER R/O COVID; PT IS AWAKE DOES NOT FOLLOW COMMAND OR ANSWERS QUESTIONS. HYMAN CATH W/NO URINE OUTPUT. PTS MOUTH IS COVERED W/DRY BROWN SECRETIONS. TONGUE IS YELLOW/GREEN COLOR. PROVIDED ORAL CARE. PT RESISTANT TO ORAL CARE.
[2019-09-22] MEDS ORDERED: VANCOMYCIN 1 GM VIAL ONE (21:04)
[2019-09-22] MEDS ORDERED: PIPERACILLIN /TAZOBACTAM 2.25 G VIAL IV ONE (21:04)
[2019-09-22] MEDS: PIPERACILLIN /TAZOBACTAM 2.25 G in IV D5W 50 ML IV SCH (21:15)
[2019-09-22] MEDS: HEPARIN SODIUM, PORCINE 5000 UNITS/1 ML VIAL SQ SCH (21:22)
[2019-09-22] MEDS: HYDROXYCHLOROQUINE 200 MG TABLET PO SCH (22:00)
--- NOTE | 2019-09-22 22:00 | NUR ---
BILINGUAL CUSTOMER SERVICE SPECIALIST PT UNABLE TO SWALLOW [place]. NON ADMIN. PT NPO STATUS AT THIS TIME.
[2019-09-22] MEDS: SENNOSIDES 8.6 MG TABLET PO SCH ×2 (22:25→23:35)
[2019-09-23] VITALS (44 sets, daily range): BP systolic 0–123; BP diastolic 22–69
[2019-09-23] MEDS ORDERED: PIPERACILLIN /TAZOBACTAM 3.375 G in IV D5W 50 ML IV SCH ×2
[2019-09-23] MEDS: BLOOD SUGAR DIAGNOSTIC 1 EACH STRIP IN SCH ×3 (00:35→11:09)
[2019-09-23] MEDS ORDERED: IV NS 0.9% 1,000 ML IV PRN (01:00)
[2019-09-23 01:29] LABS: ALANINE AMINOTRANSFERASE 124 U/L (12-78); ALBUMIN 1.9 g/dL (3.4-5.0); ALKALINE PHOSPHATASE 94 U/L (46-116); ASPARTATE AMINOTRANSFERASE 159 U/L (15-37); BILIRUBIN,TOTAL 0.2 mg/dL (0.2-1.0); CALCIUM, SERUM 8.2 mg/dL (8.5-10.1); GLUCOSE 121 mg/dL (74-106); POTASSIUM 5.5 mmol/L (3.5-5.1); TOTAL PROTEIN, SERUM 6.7 g/dL (6.4-8.2)
[2019-09-23 01:32] LABS: CHLORIDE 128 mmol/L (98-107); SODIUM SERUM 162 mmol/L (136-145)
[2019-09-23 01:33] LABS: CARBON DIOXIDE 9 mmol/L (21-32); UREA NITROGEN, BLOOD 161 mg/dL (7-18)
[2019-09-23 01:59] LABS: FERRITIN 2349 ng/mL (8-388)
--- NOTE | 2019-09-23 02:00 | NUR ---
STATION MANAGER REPORTED TO PARAMJIT DNP PT HAS 10 ML OF URINE OUTPUT SINCE ADMISSION. REVIEWED ER LAB RESULTS W/NEW ORDERS RECEIVED. CRITICAL LABS RELAYED. CONTINUE TO MONITOR PT.
[2019-09-23 02:20] LABS: ABG BASE EXCESS -17.9 mmol/L; ABG OXYGEN SATURATION 88.4 % (92.0-98.5); ABG PCO2 13.9 mmHg (35.0-45.0); ABG PH 7.279 (7.350-7.450); ABG PO2 63.1 mmHg (75.0-100.0); AaDO2 120.1 mmHg; COHb 0.3 % (0.5-1.5); MetHb 0.3 % (0.0-1.5); O2Hb 87.9 % (94.0-97.0); SITE, ABG Right Brachial; VENT MODE, BG NASAL CANNULA
[2019-09-23 02:21] LABS: CREATININE 8.5 mg/dL (0.6-1.3)
[2019-09-23] MEDS ORDERED: SODIUM BICARBONATE SYR 50 MEQ/50 ML DISP.SYRIN ONE (02:39)
[2019-09-23] MEDS ORDERED: SODIUM BICARBONATE SYR 50 MEQ/50 ML DISP.SYRIN IV ONE (03:00)
[2019-09-23] MEDS ORDERED: Sodium Bicarbonate 100 MEQ in IV D5/ 0.9% NACL 1,000 ML IV PRN (03:00)
[2019-09-23 03:08] LABS: BILIRUBIN,DIRECT 0.1 mg/dL (0.0-0.2)
[2019-09-23] MEDS ORDERED: PIPERACILLIN /TAZOBACTAM 2.25 G VIAL IV ONE (03:44)
[2019-09-23] MEDS: PIPERACILLIN /TAZOBACTAM 2.25 G in IV D5W 50 ML IV SCH (04:30)
[2019-09-23 04:44] LABS: BASOPHILS % (AUTO) 0.1 % (0.0-2.0); HEMATOCRIT 26 % (39-51); HEMOGLOBIN 8.6 g/dL (13.5-17.5); MEAN CORPUSCULAR HGB CONC 33 g/dl (31.0-36.0); MEAN CORPUSCULAR VOLUME 94 fL (80-96); MONOCYTES # (AUTO) 0.2 /CMM (0.1-1.30); MONOCYTES % (AUTO) 1.9 % (2.0-12.0); NEUTROPHILS # (AUTO) 8.8 /CMM (1.8-8.9); PLATELET COUNT (AUTO) 153 /CMM (150-450); RED BLOOD CELL COUNT(AUTO) 2.74 MIL/uL (4.5-6.0)
[2019-09-23 04:57] LABS: ALANINE AMINOTRANSFERASE 116 U/L (12-78); ALBUMIN 1.8 g/dL (3.4-5.0); ALKALINE PHOSPHATASE 86 U/L (46-116); ASPARTATE AMINOTRANSFERASE 158 U/L (15-37); BILIRUBIN,TOTAL 0.2 mg/dL (0.2-1.0); CARBON DIOXIDE 11 mmol/L (21-32); GLUCOSE 121 mg/dL (74-106); POTASSIUM 5.1 mmol/L (3.5-5.1); TOTAL PROTEIN, SERUM 6.3 g/dL (6.4-8.2)
[2019-09-23 05:05] LABS: CHLORIDE 128 mmol/L (98-107); CREATININE 8.3 mg/dL (0.6-1.3); SODIUM SERUM 163 mmol/L (136-145); UREA NITROGEN, BLOOD 164 mg/dL (7-18)
[2019-09-23 05:39] LABS: THYROID STIMULATING HORMONE 0.478 uIU/mL (0.358-3.74)
[2019-09-23] MEDS ORDERED: NOREPINEPHRINE 4 MG/4 ML AMPUL IV ONE (05:45)
[2019-09-23] MEDS ORDERED: FEE PK DOSING 1 MIN EA MC ONE (07:32)
--- NOTE | 2019-09-23 07:35 | NUR ---
ICU/RN PT IS OPEN HIS EYES,REACTIVE ON PAIN STIMULATION,ON 15 L NRM,SAT O2-85%.ON LEVOPHED DRIP.ANURIC ,F/C IN PLACE .ON BI-CARB DRIP ORDERED. LABS REVIEW, NOTIFIED.
[2019-09-23] MEDS ORDERED: IPRATROPIUM BROMIDE 14 GM INHALER (or 12.9 GM) IH PRN (08:00)
--- NOTE | 2019-09-23 08:10 | NUR ---
ICU/RN DUE MEDS ARE GIVEN ORDERED.PT IS NPO.UNABLE TO SWALLOW.PLACED ON HIGH FLOW OXYGEN AT FIO2-100%,AT 60L,SAT O2-89%.LEVOPHED DRIP INCREASED.CONTINUE MONITORING.
[2019-09-23] MEDS: HEPARIN SODIUM, PORCINE 5000 UNITS/1 ML VIAL SQ SCH (08:31)
[2019-09-23] MEDS: HYDROXYCHLOROQUINE 200 MG TABLET PO SCH (08:32)
[2019-09-23 08:38] LABS: IRON, SERUM 46 ug/dl (50-175); TOTAL IRON BINDING CAPACITY 92 ug/dl (250-450)
[2019-09-23] MEDS ORDERED: GABAPENTIN 100 MG CAPSULE PO SCH (09:00)
[2019-09-23] MEDS ORDERED: SERTRALINE HCL 25 MG TABLET PO SCH (09:00)
[2019-09-23] MEDS ORDERED: FERROUS SULFATE (325 MG) 325 MG/TAB TABLET PO SCH (09:00)
[2019-09-23] MEDS ORDERED: HYDROCORTISONE SOD SUCCINATE 100 MG/2 ML VIAL IV SCH (09:00)
[2019-09-23] MEDS ORDERED: VITAMIN B COMP W-C 1 TAB TABLET PO SCH (09:00)
[2019-09-23] MEDS ORDERED: Medication Not On Formulary EA (Apremilast (Otezla) 30 MG) PO SCH (09:00)
[2019-09-23 09:15] LABS: FERRITIN 2843 ng/mL (8-388)
[2019-09-23] MEDS ORDERED: Sodium Bicarbonate 100 MEQ in IV D5/0.45 NACL 1,000 ML IV PRN (10:30)
--- NOTE | 2019-09-23 11:48 | NUR ---
ICU/RN JUST TALK TO FAMILY ,SON LIV LAKHANI. PT IS DNR/DNI NOW.DR BEN RUEDA NOTIFIED.PT IS ON MAXIMUM DOSE OF LEVOPHED, ON 100% FIO2.SAT O2-78%.NON RESPONSIVE.
[2019-09-23] MEDS ORDERED: PIPERACILLIN /TAZOBACTAM 2.25 G in IV D5W 50 ML IV SCH (12:00)
--- NOTE | 2019-09-23 12:07 | NUR ---
RN NOTE PT DNR STATUS. FOUND APNEIC, ASYSTOLIC, AREFLEXIVE. PT PRONOUNCED AT 1207. SON NOTIFIED BY PHONE.
--- NOTE | 2019-09-23 12:20 | NUR ---
ICU/RN CALL VENDING ROUTE SERVICER OFFICE -PT IS NOT A CANDIDATE.CASE # [id number].-GALEAS. CALL [facility].PT CASE NUMBER IS CC [id number] .LACE WEAVER RAZA NOTIFIED.FAMILY NOTIFIED .KJ LAKHANI. [phone]. [phone].AT THIS MOMENT FAMILY HAS NO ARRANGEMENTS ,BODY WILL GO TO [facility].
[2019-09-23] MEDS ORDERED: HYDROXYCHLOROQUINE 200 MG TABLET PO SCH ×2 (17:00→21:00)
[2019-09-26] MEDS ORDERED: VANCOMYCIN 1 GM in IV D5W 250 ML IV SCH (22:00)
== END 2019-09-23 14:00 | disposition expired | DRG 871 ==
LOC: ER 15:27 → ICU 19:35
PROVIDERS: ADMIT Nurse Practitioner Acute Care
PROC: 02HV33Z Insertion of Infusion Device into Superior Vena Cava, Percutaneous Approach (ICD-10-PCS; principal; 2019-09-23)
PROC: B548ZZA Ultrasonography of Superior Vena Cava, Guidance (ICD-10-PCS; 2019-09-23)
DX: A41.89 Other specified sepsis (principal); R65.21 Severe sepsis with septic shock; J96.01 Acute respiratory failure with hypoxia; N17.0 Acute kidney failure with tubular necrosis; J12.89 Other viral pneumonia; J96.02 Acute respiratory failure with hypercapnia; I21.A1 Myocardial infarction type 2; U07.1 COVID-19; G93.40 Encephalopathy, unspecified; I13.2 Hypertensive heart and chronic kidney disease with heart failure and with stage 5 chronic kidney disease, or end stage renal disease; E87.2 Acidosis; E87.0 Hyperosmolality and hypernatremia; G30.9 Alzheimer's disease, unspecified; F02.80 Dementia in other diseases classified elsewhere, unspecified severity, without behavioral disturbance, psychotic disturbance, mood disturbance, and anxiety; Z66 Do not resuscitate; Z79.899 Other long term (current) drug therapy; Z79.51 Long term (current) use of inhaled steroids; Z87.440 Personal history of urinary (tract) infections; M19.90 Unspecified osteoarthritis, unspecified site; Z96.651 Presence of right artificial knee joint; Y95 Nosocomial condition; E86.0 Dehydration; E11.22 Type 2 diabetes mellitus with diabetic chronic kidney disease; I50.9 Heart failure, unspecified; F09 Unspecified mental disorder due to known physiological condition; J44.9 Chronic obstructive pulmonary disease, unspecified; K80.20 Calculus of gallbladder without cholecystitis without obstruction; D64.9 Anemia, unspecified; N18.9 Chronic kidney disease, unspecified
CPT/HCPCS: 36415; 36600; 71045-TC; 80053-TC; 80061-TC; 81000-TC; 82248-TC; 82533; 82550-TC; 82728-TC; 82803-TC; 82962-TC; 83540-TC; 83605-TC; 83615-TC; 83880; 84443-TC; 84484-TC; 85025-TC; 85378-TC; 85730-TC; 86140-TC; 87040-TC; 87081-TC; 87086-TC; C1751; G0378; J1644; J1650; J1720; J1815; J2543; J3370; J3490; J7030; J7040; J7042; J7050; J7060; J7070